=== PATIENT | male | born 1985 | race Caucasian/White ===

== ENCOUNTER 2018-10-03 11:00 | Emergency (ER) | payer BC, MEDICAID ==
--- NOTE | 2018-10-03 12:03 | EDM.PDOC ---
ED HPI GENERAL MEDICAL PROBLEM - General Chief Complaint: Skin Complaint Stated Complaint: RASH ON LEGS AND ONE IS INFECTED Time Seen by Provider: 10/03/18 12:00 Source of Information: Reports: Patient History Limitations: Reports: No Limitations - History of Present Illness INITIAL COMMENTS - FREE TEXT/NARRATIVE: Kuldeep is a 32 year old male, presents to the ED with redness warmth and purulent drainage coming from right leg. Symptoms started 3 days ago, prior to this patient had some redness and itching which he attributed to contact dermatitis from poison asif. Patient denies any fever/chills or systemic symptoms. He also endorses swelling to area. Nothing has really made symptoms better or worse. Onset: Gradual Duration: Day(s): (3) Right Lower Leg Pain Score (Numeric/FACES): 2 - Related Data Allergies Allergy/AdvReac Type Severity Reaction Status Date / Time tramadol Allergy Headache Verified 10/03/18 11:35 Home Meds: Home Meds NK [No Known Home Meds] 10/03/18 [History] Past Medical History HEENT History: Reports: None Cardiovascular History: Reports: None Respiratory History: Reports: None Gastrointestinal History: Reports: None Genitourinary History: Reports: None Musculoskeletal History: Reports: None Neurological History: Reports: None Psychiatric History: Reports: None Endocrine/Metabolic History: Reports: None Hematologic History: Reports: None Immunologic History: Reports: None Oncologic (Cancer) History: Reports: None Dermatologic History: Reports: None - Past Surgical History Head Surgeries/Procedures: Reports: None HEENT Surgical History: Reports: None Cardiovascular Surgical History: Reports: None GI Surgical History: Reports: None Neurological Surgical History: Reports: None Musculoskeletal Surgical History: Reports: Carpal Tunnel, Other (See Below) Other Musculoskeletal Surgeries/Procedures:: left elbow Dermatological Surgical History: Reports: None Social & Family History - Tobacco Use Smoking Status *Q: Former Smoker Used Tobacco, but Quit: No Month/Year Tobacco Last Used: 2008 - Caffeine Use Caffeine Use: Reports: Coffee, Soda - Recreational Drug Use Recreational Drug Use: No ED ROS GENERAL - Review of Systems Review Of Systems: ROS reveals no pertinent complaints other than HPI. ED EXAM, SKIN/RASH Exam: See Below Exam Limited By: No Limitations General Appearance: Alert, WD/WN, No Apparent Distress Throat/Mouth: Normal Oropharynx Head: Atraumatic Neck: Normal Inspection, Supple, Non-Tender Respiratory/Chest: No Respiratory Distress Cardiovascular: Regular Rate, Rhythm Back Exam: Normal Inspection Extremities: Normal Range of Motion, Other (mild non pitting edema to right lower extremity from knee to ankle) Neurological: Alert, Oriented, CN II-XII Intact Skin: Erythema, Other (erythema and warmth to right LE, anterior nuñez, none on knee or past inner knee proximally, scab in central area of erythema, no current purulent drainage appreciated) Associated features: Warmth, Tenderness, Swelling, Inflammation Lymphatic: No Adenopathy Course - Vital Signs Last Recorded V/S: Last Vital Signs Temp 35.7 C 10/03/18 11:37 Pulse 66 10/03/18 11:37 Resp 13 10/03/18 11:37 BP 140/88 10/03/18 11:37 Pulse Ox 98 10/03/18 11:37 Kuldeep is a 32 year old male, otherwise healthy male, presents with increasing redness/warmth and purulent drainage from RLE. Please refer to HPI and focused exam. Patient's exam consistent with cellulitis, no current drainage, no signs of SIRS or sepsis. Given report of purulent drainage, will cover for possible MRSA component, area marked with skin marker. Patient given reasons to return to the ED. He is agreeable to plan of care and discharged in stable condition. Departure - Departure Time of Disposition: 12:30 Disposition: Home, Self-Care 01 Condition: Good Clinical Impression: Cellulitis Qualifiers: Site of cellulitis: extremity Site of cellulitis of extremity: lower extremity Laterality: right Qualified Code(s): L03.115 - Cellulitis of right lower limb - Discharge Information Instructions: Contact Dermatitis, [id number] Referrals: PCP,None [Primary Care Provider] - Forms: ED Department Discharge
== END 2018-10-03 12:21 | disposition home or self-care (01) ==
LOC: JP.ED 11:00
DX: L03.115 Cellulitis of right lower limb (principal); Z88.6 Allergy status to analgesic agent
CPT/HCPCS: 99282; 99283

== ENCOUNTER 2021-05-11 15:10 | Emergency (ER) | payer MEDICAID | END 2021-05-11 16:11 | disposition home or self-care (01) | LOC: JP.ED 15:10 | DX: G89.29 Other chronic pain (principal); M54.50 Low back pain, unspecified; Z88.5 Allergy status to narcotic agent | CPT/HCPCS: 99283 ==